=== PATIENT | female | born 1950 | race Caucasian/White ===

== ENCOUNTER → 2019-12-30 | Outpatient (CLI) | payer OTHER | END | disposition home or self-care (01) | LOC: GI 09:32 | PROVIDERS: ATTEND Internal Medicine Gastroenterology | DX: K22.4 Dyskinesia of esophagus (principal); Z11.59 Encounter for screening for other viral diseases; Z88.2 Allergy status to sulfonamides; Z88.8 Allergy status to other drugs, medicaments and biological substances ==

== ENCOUNTER → 2020-03-31 | Outpatient (CLI) | payer OTHER ==
[~2020-03-31] MED LIST: BIOTIN1 M1 PO; DEPAKOTE ER250 MG PO; FORTAMET500 MG PO; MECLIZINE HCL25 M1 PO; OZEMPIC0.25 MG/0. SUBQ; PROTONIX40 M2 PO; ROSUVASTATIN CA10 MG PO
== END ==
LOC: LAB 13:24 → EDSTATUS 16:53
PROVIDERS: ATTEND Student in an Organized Health Care Education/Training Program
DX: Z01.812 Encounter for preprocedural laboratory examination (principal); Z20.828 Contact with and (suspected) exposure to other viral communicable diseases

== ENCOUNTER → 2020-04-05 | Outpatient (CLI) | payer OTHER ==
[~2020-04-05] VITALS: Ht 167.6 cm; Wt 81.7 kg
--- NOTE | 2020-04-06 17:06 | PATH ---
[facility] [address] [place] [address] PATHOLOGY RPT PROCEDURE Name: LOTTIE ST Room #: REG [facility] M.R.#: [id number] Admission: 04/05/20 Date of : 48 Discharge: Report #: [id number] Path Case #: [id number] [facility] Accession Number: [id number] . 01 Material submitted: . stomach - GASTRIC POLYPS BIOPSY . 01 Clinical history: . EGD/GERD, NAUSEA, VOMITING . 02 Diagnosis: Polyps, gastric polyps, biopsy: - Fundic gland polyps. - Negative for dysplasia. (IUV:meeting coordinator; 04/06/2020) MBR 04/06/2020 1343 Local . 02 Electronically signed: . Teagan Guillermo MD, Pathologist NPI- [id number] . 01 Gross description: . The specimen is received in formalin, labeled "Lottie St, biopsy of gastric polyps". Received are four segments of pale post soft tissue ranging in size from 0.2 to 0.7 cm in maximum dimensions. The specimen is submitted entirely in cassette A1. (CAA; 04/05/2020) QAC/QAC 04/05/2020 1746 Local . 02 Pathologist provided ICD-10: K31.7 . 02 CPT . 318701 Specimen Comment: A courtesy copy of this report has been sent to [phone] Specimen Comment: [phone] Specimen Comment: Report sent to / DR MCLEAN Performed at: [address], [place], [place] [id number] MD Ricardo Augustin MD Phone: [phone] Performed at: [address] [id number] MD Teagan Guillermo MD Phone: [phone]
== END | disposition home or self-care (01) ==
LOC: GI 03-29 13:14
PROVIDERS: ATTEND Internal Medicine Gastroenterology
DX: R12 Heartburn (principal); K31.7 Polyp of stomach and duodenum; K21.9 Gastro-esophageal reflux disease without esophagitis; R11.2 Nausea with vomiting, unspecified; E11.9 Type 2 diabetes mellitus without complications; E78.00 Pure hypercholesterolemia, unspecified; M10.9 Gout, unspecified; J45.909 Unspecified asthma, uncomplicated; G40.909 Epilepsy, unspecified, not intractable, without status epilepticus; Z98.890 Other specified postprocedural states; Z79.899 Other long term (current) drug therapy; Z85.3 Personal history of malignant neoplasm of breast; Z88.0 Allergy status to penicillin; Z88.2 Allergy status to sulfonamides
CPT/HCPCS: 62110; 62900

== ENCOUNTER → 2020-04-07 | Outpatient (CLI) | payer OTHER ==
--- NOTE | 2020-04-07 14:47 | EKG ---
[facility] [place] [address] ELECTROCARDIOGRAM REPORT Name: SHU FRANK Room #: REG [facility] M.R.#: [id number] Admission: 04/07/20 Attend Phys: Kieran Aelman DO Discharge: Date of : 48 Report #: [id number] THIS REPORT FOR: cc: Juan Ramon Toledo MD, J. Christopher MD Lammoglia, Francisco J. MD ~ THIS REPORT FOR: //name// [facility] Test Date: 2020-04-07 Test Time: 08:34:49 Pat Name: SHU FRANK Department: Room: Gender: F [employer] Operator: LAURYN : 1950 Requested By: Kieran Aleman Order Number: [id number] MD: Wilner Madison Measurements Intervals [place] Rate: 76 P: 64 AK: 177 QRS: -34 QRSD: 135 T: 3 QT: 416 QTc: 468 Interpretive Statements Sinus rhythm Right bundle branch block Left axis deviation Nonspecific ST-T wave change No previous ECG available for comparison Electronically Signed On 04-07-2020 14:47:47 CDT by Wilner Madison [email or web address] <ELECTRONICALLY SIGNED> By: Wilner Madison MD 04/07/20 1447 0834 0834 Wilner Madison MD /EPI
== END | disposition home or self-care (01) ==
LOC: GI 06:25
PROVIDERS: ATTEND Internal Medicine Gastroenterology
DX: K22.70 Barrett's esophagus without dysplasia (principal); K31.7 Polyp of stomach and duodenum; E11.9 Type 2 diabetes mellitus without complications; E78.00 Pure hypercholesterolemia, unspecified; K21.9 Gastro-esophageal reflux disease without esophagitis; J45.909 Unspecified asthma, uncomplicated; M19.90 Unspecified osteoarthritis, unspecified site; I10 Essential (primary) hypertension; Z85.3 Personal history of malignant neoplasm of breast; Z79.84 Long term (current) use of oral hypoglycemic drugs; Z79.82 Long term (current) use of aspirin; Z98.890 Other specified postprocedural states
CPT/HCPCS: 62110; 62900

== ENCOUNTER → 2021-05-19 | Outpatient (CLI) | payer OTHER ==
[~2021-05-19] MED LIST changes: +METFORMIN HCL500 M3 PO; +PROAIR HFA8.5 GM INH; +ZYRTEC10 M4 PO
== END ==
LOC: LAB 13:44
PROVIDERS: ATTEND Student in an Organized Health Care Education/Training Program
DX: Z01.812 Encounter for preprocedural laboratory examination (principal); Z20.822 Contact with and (suspected) exposure to COVID-19

== ENCOUNTER → 2021-05-23 | Outpatient (CLI) | payer OTHER ==
[~2021-05-23] VITALS: Ht 165.1 cm; Wt 73.5 kg
--- NOTE | 2021-05-25 13:08 | PATH ---
[facility] [address] [place] [address] PATHOLOGY RPT PROCEDURE Name: ZACLOTTIE FELDMAN Room #: REG [facility] Melony.#: [id number] Admission: 05/23/21 Date of : 48 Discharge: Report #: [id number] Path Case #: [id number] [facility] Accession Number: [id number] . 01 Material submitted: . sigmoid colon - SIGMOID COLON POLYP . 01 Clinical history: . RECTAL BLEEDING; HX OF POLYPS HEMORRHOIDS, COLON POLYP . 02 Diagnosis: Polyp, sigmoid colon polyp, endoscopic biopsy: - Inflamed hyperplastic polyp. - Negative for dysplasia. (IUV:pit; 05/25/2021) QTP 05/25/2021 0906 Local . 02 Electronically signed: . Teagan Guillermo MD, Pathologist NPI- [id number] . 01 Gross description: . The specimen is received in formalin, labeled "St, Lottie sigmoid colon polyp" and consists of a post irregular tissue measuring 0.3 x 0.3 x 0.2 cm which is submitted in toto in A1.([place]; 05/23/2021) DKA/DKA 05/23/2021 1645 Local . 02 Pathologist provided ICD-10: K63.5 . 02 CPT . 992800 Specimen Comment: A courtesy copy of this report has been sent to [phone] Specimen Comment: [phone] Specimen Comment: Report sent to / DR MCLEAN Performed at: [address], [place], [place] [id number] MD Misha Saavedra MD Phone: [phone] Performed at: [address] [id number] MD Teagan Guillermo MD Phone: [phone]
== END | disposition home or self-care (01) ==
LOC: GI
PROVIDERS: ATTEND Internal Medicine Gastroenterology
DX: K62.5 Hemorrhage of anus and rectum (principal); K51.40 Inflammatory polyps of colon without complications; K64.8 Other hemorrhoids; K21.9 Gastro-esophageal reflux disease without esophagitis; E11.9 Type 2 diabetes mellitus without complications; J45.909 Unspecified asthma, uncomplicated; M19.90 Unspecified osteoarthritis, unspecified site; Z98.890 Other specified postprocedural states; Z86.010 Personal history of colon polyps; Z79.899 Other long term (current) drug therapy; Z88.0 Allergy status to penicillin; Z88.2 Allergy status to sulfonamides; Z85.3 Personal history of malignant neoplasm of breast
CPT/HCPCS: 62110; 62900